=== PATIENT | male | born 1985 | race Caucasian/White ===

== ENCOUNTER 2019-09-15 15:58 | Emergency (ER) | payer SELFPAY ==
[2019-09-15 16:10] VITALS: BP 130/81; PULSE 80; TEMP 98.1; BMI 27.4
--- NOTE | 2019-09-15 16:54 | PDOC ---
History of Present Illness - General Chief Complaint: Back Pain Stated Complaint: BACK PAIN Time Seen by Provider: 09/15/19 16:22 History Source: Patient - History of Present Illness Initial Comments: 09/15/19 17:08 Chief complaint: Back pain. Patient is a healthy 34-year-old male who started working out at the gym early last week. He states yesterday he started having pain in his neck when he would position his neck backwards. He is also complaining of some pain in the left lower back into the left leg. No numbness, incontinence or saddle anesthesia. Patient has not taken any pain meds. Patient also has an ongoing issue with his stomach that starts to bother him after he eats. He has seen the doctor twice but has not seen a transit coach operator. Patient has no fever, chest pain, shortness of breath, nausea, headache or weakness. GENERAL/CONSTITUTIONAL: No fever, weakness. dizziness HEAD, EYES, EARS, NOSE AND THROAT: No change in vision. No ear pain or discharge. No sore throat. CARDIOVASCULAR: No chest pain RESPIRATORY: No shortness of breath or cough GASTROINTESTINAL: No pain, nausea, vomiting, diarrhea or constipation GENITOURINARY: No dysuria MUSCULOSKELETAL: +neck, back pain SKIN: No rash NEUROLOGIC: No headache, vertigo, loss of consciousness, or loss of sensation. GENERAL: The patient is awake, alert, and fully oriented, in no acute distress. HEAD: Normal with no signs of trauma. EYES: Pupils equal, round and reactive to light, sclera anicteric, conjunctiva clear. ENT: pharynx: no erythema, no exudate, uvula midline NECK: supple CHEST: clear, nontender, rr ABD: soft, nontender BACK: left si tenderness, no signs of injury EXTREMITIES: Normal range of motion, no edema. NEUROLOGICAL: Normal speech, normal gait. Cranial nerves II through XII grossly intact, no gross focal abnormalities SKIN: Warm, Dry Past History - Past Medical History Allergies/Adverse Reactions: Allergies Allergy/AdvReac Type Severity Reaction Status Date / Time No Known Allergies Allergy Verified 09/15/19 16:05 COPD: No - Psycho Social/Smoking Cessation Hx Smoking History: Never smoked *Physical Exam - Vital Signs Last Vital Signs Temp Pulse Resp BP Pulse Ox 98.1 F 80 20 130/81 99 09/15/19 16:05 09/15/19 16:05 09/15/19 16:05 09/15/19 16:05 09/15/19 16:05 Medical Decision Making - Medical Decision Making 09/15/19 17:10 34-year-old male with no significant medical problems who has 2 days of left lower back pain going into his leg, patient is able to sit, stand, bend over and touch his toes, he has worse pain when he bends over. He had also said he had neck pain but has no neck pain now. He tried to reproduce it by putting his head back which she says usually causes it but there is no signs of discomfort. Patient has ongoing GI issue, that is being evaluated. Patient has not taken any medication. Patient was more concerned that since he was having pain on the left side of his body that he might be having a heart attack but there are no symptoms that are suggestive of this. Discussed issues, findings, results, applicable medications and treatments and follow-up. All these were understood and all questions were answered 09/15/19 17:16 Discharge - Discharge Information Problems reviewed: Yes Clinical Impression/Diagnosis: Back pain of lumbar region with sciatica Condition: Stable Disposition: HOME - Admission No - Additional Discharge Information Prescription Drug Monitoring Program (I-STOP) results: I-STOP not reviewed - Follow up/Referral Referrals: Silvia Mittal DO [Staff Physician] - - Patient Discharge Instructions Patient Printed Discharge Instructions: DI for Low Back Pain Additional Instructions: You can take Pepcid 20 mg every day for your stomach. It is still very important for you to follow-up with a transit coach operator to get a proper diagnosis and make sure that there is nothing dangerous with your stomach. For your back you can try either Tylenol 650 mg or Motrin 400 mg at bedtime. You are being given the name of the transit coach operator to follow-up with. You do not need a specialist for your back at this point. This should get better on its own. If it does not you may need to follow-up with a back specialist. You can follow-up with your own doctor on Tuesday to have a better discussion about your symptoms and your stomach issues and was going on with your back - Post Discharge Activity
== END 2019-09-15 17:36 | disposition home or self-care (01) ==
LOC: JERFT 15:58
DX: M54.42 Lumbago with sciatica, left side (principal)
CPT/HCPCS: 99282-25

== ENCOUNTER 2022-02-21 01:31 | Emergency (ER) | payer SELFPAY ==
[2022-02-21 03:10] VITALS: BP 142/83; PULSE 72; TEMP 97; BMI 25.7
[2022-02-21 03:23] LABS: BASO % 0.5 % (0-2.0); EOS % 1.4 % (0-4.5); HEMATOCRIT 41.6 % (35.4-49); HEMOGLOBIN 14.5 GM/dL (11.7-16.9); LYMPH % 27.8 % (8-40); MCHC 34.8 g/dl (32.0-35.9); MEAN CELL VOLUME 83.3 fl (80-96); MEAN PLT VOLUME 8.9 fl (7.5-11.1); MONO % 11.5 % (3.8-10.2); NEUT % 58.8 % (42.8-82.8); PLATELET COUNT 199 10^3/uL (134-434); RDW 13.4 % (11.9-15.9); WHITE BLOOD COUNT 6.4 K/mm3 (4.0-10.0)
[2022-02-21] MEDS ORDERED: ACETAMINOPHEN 1000 MG/100 ML BAG IVPB ONE (03:26)
[2022-02-21 03:45] LABS: CALCIUM 9.2 mg/dL (8.5-10.1)
[2022-02-21 03:46] LABS: ALBUMIN 4.1 g/dl (3.4-5.0)
[2022-02-21 03:48] LABS: CREATININE 0.9 mg/dL (0.55-1.3)
[2022-02-21 03:50] LABS: BILIRUBIN,TOTAL 0.4 mg/dL (0.2-1); TOT PROT 7.5 g/dl (6.4-8.2)
== END 2022-02-21 06:04 | disposition home or self-care (01) ==
LOC: JER 01:31
PROC: 3E023NZ Introduction of Analgesics, Hypnotics, Sedatives into Muscle, Percutaneous Approach (ICD-10-PCS; principal; 2022-02-21)
DX: R10.9 Unspecified abdominal pain (principal)
CPT/HCPCS: 36415; 74177-TC; 80053; 83690; 85025; 93005; 93010; 99285-25; Q9967

== ENCOUNTER 2023-10-01 04:26 | Emergency (ER) | payer SELFPAY ==
[2023-10-01 04:38] VITALS: RESP 18; BMI 25.6
[2023-10-01] MEDS ORDERED: IBUPROFEN 600 MG TABLET (FP) PO ONE ×2 (05:39→05:59)
[2023-10-01 06:20] LABS: HEMOGLOBIN 14.2 GM/dL (11.7-16.9); MCH 29.7 pg (25.7-33.7); MCHC 34.7 g/dl (32.0-35.9); MEAN CELL VOLUME 85.7 fl (80-96); MEAN PLT VOLUME 9.4 fl (7.5-11.1); PLATELET COUNT 195 10^3/uL (134-434); RBC 4.78 M/mm3 (4.00-5.60); RDW 13.5 % (11.9-15.9); WHITE BLOOD COUNT 6.5 K/mm3 (4.0-10.0)
[2023-10-01 06:34] LABS: POTASSIUM 3.8 mmol/L (3.5-5.1)
[2023-10-01 06:35] LABS: CALCIUM 8.5 mg/dL (8.5-10.1)
[2023-10-01 06:36] LABS: ALBUMIN 3.7 g/dl (3.4-5.0); BLOOD UREA NITROGEN 15.4 mg/dL (7-18)
[2023-10-01] MEDS ORDERED: POTASSIUM CHLORIDE TABS 20 MEQ TABLET.ER (FP) PO ONE ×2 (06:37→06:41)
[2023-10-01] MEDS ORDERED: MAGNESIUM SULF 50% (8.12 MEQ/2 ML-1 GM VIAL) IVPB ONE (06:37)
[2023-10-01 06:39] LABS: CREATININE 0.8 mg/dL (0.55-1.3)
[2023-10-01 06:41] LABS: TOT PROT 6.9 g/dl (6.4-8.2)
[2023-10-01] MEDS ORDERED: MAGNESIUM SULFATE IN WATER 2 GM/50 ML IVPB IVPB ONE (06:41)
[2023-10-01 06:43] LABS: BILIRUBIN,TOTAL 0.4 mg/dL (0.2-1)
[2023-10-01 08:23] LABS: PH,URINE 6.5 (5.0-8.0); URINE APPEARANCE CLEAR; URINE BILIRUBIN NEGATIVE (NEGATIVE); URINE COLOR YELLOW; URINE GLUCOSE (UA) NEGATIVE (NEGATIVE); URINE KETONE NEGATIVE (NEGATIVE); URINE LEUK ESTERASE NEGATIVE (NEGATIVE); URINE NITRITE NEGATIVE (NEGATIVE); URINE PROTEIN NEGATIVE (NEGATIVE); URINE UROBILINOGEN 0.2 mg/dL (0.2-1.0)
[2023-10-01 08:44] VITALS: BP 118/76; PULSE 76; TEMP 98.5
== END 2023-10-01 08:58 | disposition home or self-care (01) ==
LOC: JER 04:26
PROC: 3E033GC Introduction of Other Therapeutic Substance into Peripheral Vein, Percutaneous Approach (ICD-10-PCS; principal; 2023-10-01)
DX: R10.9 Unspecified abdominal pain (principal); R20.2 Paresthesia of skin; R30.0 Dysuria; R07.9 Chest pain, unspecified
CPT/HCPCS: 36415; 80053; 81003; 84484; 85027; 87086; 93005; 93010; 99284-25